=== PATIENT | male | born 1985 | race Two or more races ===

== ENCOUNTER 2017-08-05 07:03 | Emergency (ER) | payer OTHER ==
[~2017-08-05] VITALS: Ht 182.9 cm; Wt 140.2 kg
[~2017-08-05 07:03] MED LIST: BACTRIM 400-801 EACH PO; GILTUSS TR TAB1 EACH PO; LOTRIMIN AF150 GM TOP; LOTRISONE CREAM45 GM TP; TOBREX5 ML OP; ZITHROMAX TRI-500 MG PO; ZYRTEC10 MG PO
[2017-08-05] MEDS ORDERED: GILTUSS TR TAB1 EACH PO (10:50)
== END 2017-08-05 11:17 | disposition home or self-care (01) ==
LOC: ER 07:03
DX: R50.9 Fever, unspecified (principal)

== ENCOUNTER → 2018-07-06 | Emergency (ER) | payer OTHER ==
[~2018-07-06] VITALS: Ht 182.9 cm; Wt 137.0 kg
== END | disposition home or self-care (01) ==
LOC: ER 10:55
DX: N20.0 Calculus of kidney (principal); R10.32 Left lower quadrant pain

== ENCOUNTER 2018-11-17 17:27 | Outpatient (CLI) | payer OTHER | END 2018-11-17 17:31 | disposition home or self-care (01) | LOC: LAB 17:27 | DX: J11.1 Influenza due to unidentified influenza virus with other respiratory manifestations (principal); J11.89 Influenza due to unidentified influenza virus with other manifestations ==

== ENCOUNTER 2020-03-22 08:26 | Outpatient (CLI) | payer OTHER | END 2020-03-22 08:39 | disposition home or self-care (01) | LOC: RAD 08:26 | DX: M72.2 Plantar fascial fibromatosis (principal) ==

== ENCOUNTER 2021-02-25 20:43 | Emergency (ER) | payer OTHER ==
[~2021-02-25] VITALS: Ht 182.9 cm; Wt 140.2 kg
== END 2021-02-25 22:29 | disposition home or self-care (01) ==
LOC: ER 20:43
DX: H66.93 Otitis media, unspecified, bilateral (principal); J02.8 Acute pharyngitis due to other specified organisms

== ENCOUNTER 2021-07-29 12:55 | Emergency (ER) | payer OTHER ==
[~2021-07-29] VITALS: Ht 182.9 cm; Wt 142.4 kg
[2021-07-29] MEDS ORDERED: DICLOFENAC POTA50 MG PO (18:28)
[2021-07-29] MEDS ORDERED: PEPCID AC20 MG PO (18:28)
== END 2021-07-29 18:57 ==
LOC: ER 12:55
DX: U07.1 COVID-19 (principal)